=== PATIENT | female | born 1940 | race Caucasian/White ===

== ENCOUNTER 2016-02-20 10:32 | Observation (INO) | payer OTHER ==
--- NOTE | 2016-02-20 10:55 | PDOC ---
History of Present Illness <Clau Foley - Last Filed: 02/20/16 15:37> - General History Source: Patient Exam Limitations: No Limitations - History of Present Illness Initial Comments: 02/20/16 11:22 The patient is a 76 year old female, with a significant past medical history of HTN s/p cardiac stents (x2), HLD, diabetes, ESRD, on dialysis (, , Sa), who presents to the emergency department with chest pain since last night. She describes her chest pain as ranging from mild to moderate, without radiation or modifying factors. The patient denies shortness of breath, headache and dizziness. Denies fever, chills, nausea, vomit, diarrhea and constipation. Denies dysuria, frequency, urgency and hematuria. Allergies: Morphin, Reglan, IV dye, Cephalosporins, lovastatin Past surgical history: 2 cardiac stents, angioplasty BLE, Lower back surgery, RBKA,R HIP SURGERY-METAL RODS AND PINS PLACED Social history: No alcohol, tobacco or drug use reported <Ean Campos - Last Filed: 02/20/16 15:51> - General Chief Complaint: Chest Pain Stated Complaint: CHEST PAIN Time Seen by Provider: 02/20/16 10:54 Past History - Past Medical History Anemia: No Asthma: No Cancer: No Cardiac Disorders: Yes (2 stents) CVA: No COPD: No CHF: No Dementia: No Diabetes: Yes Dialysis: Yes GI Disorders: No Disorders: Yes (ESRD, dialysis e,,sat) HTN: Yes Hypercholesterolemia: Yes Liver Disease: No Suicide Attempt (Hx): No Seizures: No Thyroid Disease: No - Surgical History Abdominal Surgery: No Appendectomy: No Cardiac Surgery: Yes (2 stents, angioplasty BLE) Cholecystectomy: No Lung Surgery: No Neurologic Surgery: Yes (lower back sx) Orthopedic Surgery: Yes (RBKA,R HIP SURGERY-METAL RODS AND PINS PLACED) - Immunization History Immunization Up to Date: Yes - Psycho/Social/Smoking Cessation Hx Anxiety: No Suicidal Ideation: No Smoking History: Never smoked Have you smoked in the past 12 months: No Cigars Per Day: 0 Hx Alcohol Use: No Drug/Substance Use Hx: No Substance Use Type: None Hx Substance Use Treatment: No <Clau Foley - Last Filed: 02/20/16 15:37> <Ean Campos - Last Filed: 02/20/16 15:51> - Past Medical History Allergies/Adverse Reactions: Allergies Allergy/AdvReac Type Severity Reaction Status Date / Time lovastatin [From Mevacor] Allergy Severe Rash Verified 02/20/16 10:57 Cephalosporins Allergy Verified 02/20/16 10:57 Iodinated Contrast Media - Allergy Verified 02/20/16 10:57 Oral and [Iodinated Contrast Media - IV Dye] metoclopramide HCl Allergy Verified 02/20/16 10:57 [From Reglan] morphine Allergy Verified 02/20/16 10:57 Home Medications: Ambulatory Orders Acetaminophen [Tylenol] 325 mg PO PRN 02/20/16 Atorvastatin Calcium 20 mg PO HS 02/20/16 Bacitracin - [Bacitracin Topical Ointment -] 1 applic TP BID 02/20/16 Bismuth Subsalicylate [Kaopectate] 30 ml PO PRN 02/20/16 Calcium Carbonate [Tums] 750 mg PO PRN 02/20/16 Clonidine HCl [Catapres -] 0.1 mg PO PRN 02/20/16 Clopidogrel Bisulfate [Plavix -] 75 mg PO DAILY 02/20/16 Diphenhydramine HCl [Benadryl -] 25 mg PO HS 02/20/16 Diphenhydramine in 0.9 % NaCl [Diphenhydramine 25 mg/50 ml-Ns] 25 mg IV PRN 04/06 Docusate Sodium [Colace -] 100 mg PO TID 02/20/16 Escitalopram Oxalate [Lexapro -] 10 mg PO DAILY 02/20/16 Fluticasone Propionate [Allergy Relief] 15.8 ml NS DAILY 02/20/16 Furosemide [Lasix -] 80 mg PO DAILY 02/20/16 Gabapentin [Neurontin -] 300 mg PO HS 02/20/16 Hydralazine HCl 100 mg PO TID 02/20/16 Insulin Glargine,Hum.rec.anlog [Lantus (nf)] 0 units SQ HS 02/20/16 Mirtazapine [Remeron -] 15 mg PO HS 02/20/16 Polyethylene Glycol 3350 [Miralax (For Daily Use) -] 17 gm PO BID 02/20/16 Sevelamer Carbonate [Renvela] 800 mg PO TID 02/20/16 Silver Sulfadiazine [Thermazene] 20 gm TP BID 02/20/16 Tramadol HCl [Ultram] 50 mg PO Q6H 02/20/16 Vit B Cmplx 3/FA/Vit C/Biotin [[facility] Rx Tablet] 1 each PO DAILY 02/20/16 Warfarin Sodium [Coumadin] 2.5 mg PO HS 02/20/16 Review of Systems - Review of Systems Able to Perform ROS?: Yes Comments:: 02/20/16 11:22 GENERAL/CONSTITUTIONAL: No fever or chills. No weakness. HEAD, EYES, EARS, NOSE AND THROAT: No change in vision. No ear pain or discharge. No sore throat. CARDIOVASCULAR: +Chest pain. No shortness of breath RESPIRATORY: No cough, wheezing, or hemoptysis. GASTROINTESTINAL: No nausea, vomiting, diarrhea or constipation. GENITOURINARY: No dysuria, frequency, or change in urination. MUSCULOSKELETAL: No joint or muscle swelling or pain. No neck or back pain. SKIN: No rash NEUROLOGIC: No headache, vertigo, loss of consciousness, or change in strength/ sensation. ENDOCRINE: No increased thirst. No abnormal weight change HEMATOLOGIC/LYMPHATIC: No anemia, easy bleeding, or history of blood clots. ALLERGIC/IMMUNOLOGIC: No hives or skin allergy. <Ean Campos - Last Filed: 02/20/16 15:51> *Physical Exam - Physical Exam Comments: GENERAL: Awake, alert, and fully oriented, in no acute distress HEAD: No signs of trauma EYES: PERRLA, EOMI, sclera anicteric, conjunctiva clear ENT: L auricle with area of swelling to the cymba and the triangular fossa. With leakage of purulent discharge in the triangular fossa. +Edema to the same. Hearing grossly normal, nares patent, oropharynx clear without exudates. Dry mucosa NECK: Normal ROM, supple, no lymphadenopathy, JVD, or masses LUNGS: Breath sounds equal, clear to auscultation bilaterally. No wheezes, and no crackles HEART: Regular rate and rhythm, normal S1 and S2, no murmurs, rubs or gallops ABDOMEN: Soft, nontender, normoactive bowel sounds. No guarding, no rebound. No masses EXTREMITIES: Normal range of motion, no edema. No clubbing or cyanosis. No cords, erythema, or tenderness NEUROLOGICAL: Cranial nerves II through XII grossly intact. Normal speech, normal gait SKIN: Warm, Dry, normal turgor, no rashes or lesions noted. <Clau Foley - Last Filed: 02/20/16 15:37> - Vital Signs Last Vital Signs Temp Pulse Resp BP Pulse Ox 97.5 F L 82 18 159/62 98 02/20/16 10:35 02/20/16 10:35 02/20/16 10:35 02/20/16 10:35 02/20/16 10:35 <Ean Campos - Last Filed: 02/20/16 15:51> ED Treatment Course - LABORATORY CBC & Chemistry Diagram: 02/20/16 11:38 02/20/16 11:38 <Clau Foley - Last Filed: 02/20/16 15:37> - LABORATORY CBC & Chemistry Diagram: 02/20/16 11:38 02/20/16 11:38 - RADIOLOGY Radiograph Interpretation: 02/20/16 12:32 Chest X-Ray Reviewed by: Juan Carlos Silver Impression: Weak inspiration, large heart, unfolded aorta and congestive changes. A right upper lobe infiltrate cannot be totally excluded. Comparison is made of 08/15/2015. <Ean Campos - Last Filed: 02/20/16 15:51> Medical Decision Making - Medical Decision Making L ear discharge was cultured and patient was started on vanco for suspected MRSA. I expressed the purulent discharge from the edematous pocket in the cymba , as the lesion was already open in the triangular fossa. Able to express a moderate amount of fluid. I did not incise based on location, just expressed what would come out, as there was an opening already. Will defer further management to ENT. For the jaw pain, I discussed with Dr. Billings, who will admit, and Dr. Xavier, who will evaluate. Dr. Aceves to dialyze, as she missed dialysis today due to jaw pain- she was concerned it was her CAD. <Clau Foley - Last Filed: 02/20/16 15:37> - Medical Decision Making 02/20/16 13:35 Dr. Lew Billings was consulted regarding the patient at 1:27pm [phone] Dr. Farhad Aceves was consulted regarding the patient at 1:31pm [phone] <Ean Campos - Last Filed: 02/20/16 15:51> *DC/Admit/Observation/Transfer - Discharge Dispostion Admit: Yes <Clau Foley - Last Filed: 02/20/16 15:37> - Attestations Scribe Attestion: 02/20/16 11:23 Documentation prepared by Ean Campos, acting as medical scheduler for Clau Foley MD. <Ean Campos - Last Filed: 02/20/16 15:51> Diagnosis at time of Disposition: Chest pain at rest, ESRD (end stage renal disease) Abscess of external ear Qualifiers: Laterality: left Qualified Code(s): H60.02 - Abscess of left external ear - Discharge Dispostion Condition at time of disposition: Stable - Referrals
[2016-02-20 11:02] VITALS: BMI 34.0
[2016-02-20] MEDS ORDERED: VANCOMYCIN 1,000 MG in DEXTROSE 5%-WATER - 250 ML IVPB ONE (11:40)
[2016-02-20 11:58] LABS: BASOPHIL 0.7 % (0-2.0); EOSINOPHIL 6.1 % (0-4.5); MCH 33.1 pg (25.7-33.7); MCHC 32.4 g/dl (32.0-36.0); MEAN CELL VOLUME 102.1 fl (80-96); MEAN PLT VOLUME 8.4 fl (7.5-11.1); PLATELET COUNT 250 K/MM3 (134-434); RDW 14.7 % (11.6-15.6); WHITE BLOOD COUNT 7.3 K/mm3 (4.0-10.0)
[2016-02-20] MEDS ORDERED: VANCOMYCIN 1 GRAM (PRE-DOCKED) 250 ML IVPB ONE (12:02)
[2016-02-20 12:20] LABS: INR 3.7 (0.82-1.09); PROTHROMBIN TIME (PATIENT) 41.8 SEC (9.98-11.88)
[2016-02-20 12:38] LABS: ALBUMIN 3.2 g/dl (3.4-5.0); BILIRUBIN,TOTAL 0.3 mg/dL (0.2-1.0); CALCIUM 7.8 mg/dL (8.5-10.1); TOT PROT 6.4 g/dl (6.4-8.2)
[2016-02-20 12:40] LABS: TROPONIN I 0.02 ng/ml (0.00-0.05)
--- NOTE | 2016-02-20 14:17 | CONSULT ---
Consult Consult Specialty:: Cardiology Referred by:: Dr. Billings Reason for Consultation:: Jaw pain, angina - History of Present Illness Chief Complaint: Jaw pain History of Present Illness: 76 year old woman with a history of HTN, DM, HLD, CAD s/p CABG with PALOMO to LAD , s/p stents last 12/16/14 for UA KASH to RPDA, patent PALOMO to LAD residual 80-90 % AV continuation artery, 80-90% OM1, 50-60% LPL1, ESRD on HD, PAD s/p b/l fem- pop bypass s/p RLE amputation on coumadin for PAD, chronic diastolic CHF, sent to ER from HD with c/o jaw pain. Pt. seen and examined in the ER in nad, resting comfortably currently. Pt. states that she had episodes of jaw pain last night for which she took NTG with resolution. states that today she had a recurrent episode of jaw pain and thus was sent to the ER. she denies any chest pain. no sob. no palpitations, lightheadedness, dizziness, syncope, or near syncope. - History Source History Provided By: Patient, Medical Record Limitations to Obtaining History: No Limitations - Past Medical History [employer]: Yes: Peripheral Neuropathy. No: Seizure Cardio/Vascular: Yes: CAD, HTN, Hyperlipdemia, Murmur, Other (pad) Gastrointestinal: Yes: GERD, Other (obesity). 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), AV Fistula/Graft (Left), Bypass (left lower ext), Stent - Alcohol/Substance Use Hx Alcohol Use: No History of Substance Use: reports: None - Smoking History Smoking history: Never smoked Have you smoked in the past 12 months: No - Social History Usual Living Arrangement: Assisted Living ADL: Support Services History of Recent Travel: No Home Medications - Allergies Allergies/Adverse Reactions: Allergies Allergy/AdvReac Type Severity Reaction Status Date / Time lovastatin [From Mevacor] Allergy Severe Rash Verified 02/20/16 10:57 Cephalosporins Allergy Verified 02/20/16 10:57 Iodinated Contrast Media - Allergy Verified 02/20/16 10:57 Oral and [Iodinated Contrast Media - IV Dye] metoclopramide HCl Allergy Verified 02/20/16 10:57 [From Reglan] morphine Allergy Verified 02/20/16 10:57 - Home Medications Home Medications: Ambulatory Orders Acetaminophen [Tylenol] 325 mg PO PRN 02/20/16 Atorvastatin Calcium 20 mg PO HS 02/20/16 Bacitracin - [Bacitracin Topical Ointment -] 1 applic TP BID 02/20/16 Bismuth Subsalicylate [Kaopectate] 30 ml PO PRN 02/20/16 Calcium Carbonate [Tums] 750 mg PO PRN 02/20/16 Clonidine HCl [Catapres -] 0.1 mg PO PRN 02/20/16 Clopidogrel Bisulfate [Plavix -] 75 mg PO DAILY 02/20/16 Diphenhydramine HCl [Benadryl -] 25 mg PO HS 02/20/16 Diphenhydramine in 0.9 % NaCl [Diphenhydramine 25 mg/50 ml-Ns] 25 mg IV PRN 04/06 Docusate Sodium [Colace -] 100 mg PO TID 02/20/16 Escitalopram Oxalate [Lexapro -] 10 mg PO DAILY 02/20/16 Fluticasone Propionate [Allergy Relief] 15.8 ml NS DAILY 02/20/16 Furosemide [Lasix -] 80 mg PO DAILY 02/20/16 Gabapentin [Neurontin -] 300 mg PO HS 02/20/16 Hydralazine HCl 100 mg PO TID 02/20/16 Insulin Glargine,Hum.rec.anlog [Lantus (nf)] 0 units SQ HS 02/20/16 Mirtazapine [Remeron -] 15 mg PO HS 02/20/16 Polyethylene Glycol 3350 [Miralax (For Daily Use) -] 17 gm PO BID 02/20/16 Sevelamer Carbonate [Renvela] 800 mg PO TID 02/20/16 Silver Sulfadiazine [Thermazene] 20 gm TP BID 02/20/16 Tramadol HCl [Ultram] 50 mg PO Q6H 02/20/16 Vit B Cmplx 3/FA/Vit C/Biotin [[place] Rx Tablet] 1 each PO DAILY 02/20/16 Warfarin Sodium [Coumadin] 2.5 mg PO HS 02/20/16 Family Disease History - Family Disease History Family History: Denies Review of Systems - Review of Systems Constitutional: denies: No Symptoms, Chills, Diaphoresis, Fever, Lethargy, Loss of Appetite, Malaise, Night Sweats, Unintentional Wgt. Loss, Weakness, Other Eyes: denies: No Symptoms, Blind Spots, Blurred Vision, Double Vision, Eye Pain , Floaters, Photophobia, Recent Change in Vision, Other HENT: reports: Other (jaw pain). denies: No Symptoms, Difficult Swallowing, Ear Discharge, Ear Pain, Epistaxis, Gingival Bleeding, Hearing Loss, Mouth Swelling, Nasal Congestion, Ocular Prosthesis, Throat Pain, Toothache, Ringing in Ears Neck: denies: No Symptoms, Decreased ROM, Lumps, Pain on Movement, Stiffness, Swollen Glands, Tenderness, Other Cardiovascular: reports: Other (jaw pain). denies: No Symptoms, Chest Pain, Edema, Palpitations, Shortness of Breath Respiratory: denies: No Symptoms, Cough, Exercise Intolerance, Hemoptysis, Orthopnea, PND, Snoring, SOB, SOB on Exertion, Wheezing, Other Gastrointestinal: denies: No Symptoms, Abdominal Pain, Bloating, Constipation, Diarrhea, Dysphagia, Indigestion, Melena, Nausea, Rectal Bleeding, Vomiting, Vomiting Blood, Other Genitourinary: denies: No Symptoms, Burning, Discharge, Dysuria, Flank Pain, Frequency, Hematuria, Incontinence, Lesions, Menses, Pain, Testicular Mass, Testicular Pain, Testicular Swelling, Urgency, Vaginal Bleeding, Other Breasts: denies: No Symptoms Reported, See HPI, Breast Implants, Discharge from Nipple, Lumps, Pain, Skin Changes, Other Musculoskeletal: denies: No Symptoms, Back Pain, Crepitus, Decreased ROM, Extremity Pain, Joint Pain, Joint Swelling, Muscle Pain, Muscle Cramps, Muscle Weakness, Other Integumentary: denies: No Symptoms, Blister, Bruising, Change in Color, Eczema, Erythema, Incision, Lesions, Lump, Pallor, Pruritis, Rash, Wound, Other Neurological: denies: No Symptoms, Change in LOC, Change in Speech, Confusion, Dizziness, Headache, Incoordination, Numbness, Parasthesia, Pre-Existing Deficit , Seizure, Syncope, Tremors, Unsteady Gait, Weakness, Other Endocrine: denies: No Symptoms, Excessive Sweating, Flushing, Increased Hunger, Increased Thirst, Intolerance to Cold, Intolerance to Heat, Unexplained Weight Gain, Unexplained Weight Loss, Other Hematology/Lymphatic: denies: No Symptoms, Easily Bruised, Excessive Bleeding, Swollen Glands, Other Psychiatric: denies: No Symptoms, Altered Sleep Pattern, Anxiety, Depression, Hallucinations, Panic, Paranoia, Suicidal, Other - Risk Factors Known Risk Factors: Yes: Age, Diabetes Mellitus, Hypercholesterolemia, Hypertension, Prior ME /Emb Stroke Vital Signs: Vital Signs Temperature 97.5 F L 02/20/16 10:35 Pulse Rate 82 02/20/16 10:35 Respiratory Rate 18 02/20/16 10:35 Blood Pressure 159/62 02/20/16 10:35 O2 Sat by Pulse Oximetry (%) 98 02/20/16 10:35 Constitutional: Yes: No Distress, Calm, Obese Eyes: Yes: WNL, Conjunctiva Clear, EOM Intact, PERRL HENT: Yes: WNL, Atraumatic, Normocephalic Neck: Yes: WNL, Supple, Trachea Midline Respiratory: Yes: Regular, Rales. No: Rhonchi, Wheezes Gastrointestinal: Yes: WNL, Normal Bowel Sounds, Soft. No: Distention, Tenderness Renal/: Yes: WNL Cardiovascular: Yes: Regular Rate and Rhythm. No: Bradycardia, Tachycardia, Pulse Irregular, Gallop, Rub, Varicosities JVD: No Carotid Bruit: No PMI: Non-Displaced Heart Sounds: Yes: S1. No: Split S2, S3, S4, Clicks, Gallop, Rub, Bruit Murmur: No: Systolic Murmur, Diastolic Murmur Musculoskeletal: Yes: WNL Extremities: Yes: Amputation Edema: No Peripheral Pulses WNL: No Neurological: Yes: Alert, Oriented Psychiatric: Yes: Alert, Oriented - Other Data Labs, Other Data: CBC, BMP 02/20/16 11:38 02/20/16 11:38 INR, PTT INR 3.70 (0.82-1.09) H D 02/20/16 11:38 Troponin, BNP 02/20/16 11:38 Troponin I 0.02 Troponin, BNP 02/20/16 11:38 Troponin I 0.02 ekg-nsr 81bpm, LVH with repolarization abnl, poor R progression, no sig ST abnl Prior Cardiac Procedures: CABG, PTCA with Stent Imaging - Results Chest X-ray: Report Reviewed, Image Reviewed EKG: Report Reviewed, Image Reviewed Other: Report Reviewed, Image Reviewed Problem List - Problems (1) ESRD (end stage renal disease) Code(s): N18.6 - END STAGE RENAL DISEASE (2) CAD (coronary artery disease) Code(s): I25.10 - ATHSCL HEART DISEASE OF [place] CORONARY ARTERY W/O ANG PCTRS Qualifiers: Coronary Disease-Associated Artery/Lesion type: [place] coronary artery [place] vs. transplanted heart: [place] heart Associated angina: with unspecified angina pectoris (3) Diabetes Code(s): E11.9 - TYPE 2 DIABETES MELLITUS WITHOUT COMPLICATIONS Qualifiers: Diabetes mellitus type: type 2 Diabetes mellitus complication detail: with chronic kidney disease Qualified Code(s): E11.22 - Type 2 diabetes mellitus with diabetic chronic kidney disease; N18.1 - Chronic kidney disease, stage 1; Z79.4 - penitentiary (current) use of insulin (4) HTN (hypertension) Code(s): I10 - ESSENTIAL (PRIMARY) HYPERTENSION (5) Peripheral vascular disease Code(s): I73.9 - PERIPHERAL VASCULAR DISEASE, UNSPECIFIED (6) Jaw pain Code(s): R68.84 - JAW PAIN Assessment/Plan 76 year old woman with a history of HTN, DM, HLD, CAD s/p CABG with PALOMO to LAD , s/p stents last 12/16/14 for UA KASH to RPDA, patent PALOMO to LAD residual 80-90 % AV continuation artery, 80-90% OM1, 50-60% LPL1, ESRD on HD, PAD s/p b/l fem- pop bypass s/p RLE amputation on coumadin for PAD, chronic diastolic CHF, sent to ER from HD with c/o jaw pain. Pt. seen and examined in the ER in nad, resting comfortably currently. Pt. states that she had episodes of jaw pain last night for which she took NTG with resolution. states that today she had a recurrent episode of jaw pain and thus was sent to the ER. Jaw pain-chronic intermittent episodes, h/o CAD as above -1st set of cardiac enzymes wnl -ekg showed no ischemia -check serial cardiac enzymes and ekgs -telemetry monitoring -cont home Plavix (not on ASA as she is on coumadin as well for PAD) -cont lipitor -not on bblocker due to history of bradycardia Chronic diastolic CHF -currently overall euvolemic -volume removal with HD as needed HTN-adequately controlled -cont home medical regimen
[2016-02-20] MEDS ORDERED: traMADol HCL 50 MG TABLET PO PRN (14:30)
[2016-02-20] MEDS ORDERED: ACETAMINOPHEN 325 MG TABLET (FP) PO PRN (14:30)
[2016-02-20] MEDS ORDERED: CALCIUM CARBONATE 750 MG PO SCH (14:30)
--- NOTE | 2016-02-20 14:34 | HP ---
Admitting History and Physical - Admission Chief Complaint: 76 y.o F developed a jaw pain and the feli in the chest and between the shoulders, c/w previous episodes of angina at the dialysis center and was sent to the ER [facility]. History of Present Illness: ESRD, HD TIW. Right hydronephrosis, hydroureter. Recurrent UTI's, ER admission after fall-CT.X-rays neg DM 2. ASHD. S/P stents. Recent PCI-RCA KASH-now on ASA, Plavix-and on Coumadin as per vascular surgeon.. Bradicardia-intolerant of BAB-pt always develops severe bradicardia, hypotension , and MS changes. Hyperlipidemia. Polyneuropathy. PVD. B/l Fem-pop. 01/2016 Angio-no procedure done. HTN Labile. Depression Right foot gangrene-s/p Right BKA- History Source: Patient, Medical Record Limitations to Obtaining History: No Limitations - Past Medical History [employer]ENIOR VISUAL DESIGNER: Yes: Peripheral Neuropathy. No: Seizure Cardiovascular: Yes: CAD, HTN, Hyperlipdemia, Murmur, Other (pad) Gastrointestinal: Yes: GERD, Other (obesity). 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), AV Fistula/Graft (Left), Bypass (left lower ext), Stent - Smoking History Smoking history: Never smoked Have you smoked in the past 12 months: No - Alcohol/Substance Use Hx Alcohol Use: No History of Substance Use: reports: None - Social History ADL: Support Services History of Recent Travel: No Home Medications - Allergies Allergies/Adverse Reactions: Allergies Allergy/AdvReac Type Severity Reaction Status Date / Time lovastatin [From Mevacor] Allergy Severe Rash Verified 02/20/16 10:57 Cephalosporins Allergy Verified 02/20/16 10:57 Iodinated Contrast Media - Allergy Verified 02/20/16 10:57 Oral and [Iodinated Contrast Media - IV Dye] metoclopramide HCl Allergy Verified 02/20/16 10:57 [From Reglan] morphine Allergy Verified 02/20/16 10:57 - Home Medications Home Medications: Ambulatory Orders Acetaminophen [Tylenol] 325 mg PO PRN 02/20/16 Atorvastatin Calcium 20 mg PO HS 02/20/16 Bacitracin - [Bacitracin Topical Ointment -] 1 applic TP BID 02/20/16 Bismuth Subsalicylate [Kaopectate] 30 ml PO PRN 02/20/16 Calcium Carbonate [Tums] 750 mg PO PRN 02/20/16 Clonidine HCl [Catapres -] 0.1 mg PO PRN 02/20/16 Clopidogrel Bisulfate [Plavix -] 75 mg PO DAILY 02/20/16 Diphenhydramine HCl [Benadryl -] 25 mg PO HS 02/20/16 Diphenhydramine in 0.9 % NaCl [Diphenhydramine 25 mg/50 ml-Ns] 25 mg IV PRN 04/06 Docusate Sodium [Colace -] 100 mg PO TID 02/20/16 Escitalopram Oxalate [Lexapro -] 10 mg PO DAILY 02/20/16 Fluticasone Propionate [Allergy Relief] 15.8 ml NS DAILY 02/20/16 Furosemide [Lasix -] 80 mg PO DAILY 02/20/16 Gabapentin [Neurontin -] 300 mg PO HS 02/20/16 Hydralazine HCl 100 mg PO TID 02/20/16 Insulin Glargine,Hum.rec.anlog [Lantus (nf)] 0 units SQ HS 02/20/16 Mirtazapine [Remeron -] 15 mg PO HS 02/20/16 Polyethylene Glycol 3350 [Miralax (For Daily Use) -] 17 gm PO BID 02/20/16 Sevelamer Carbonate [Renvela] 800 mg PO TID 02/20/16 Silver Sulfadiazine [Thermazene] 20 gm TP BID 02/20/16 Tramadol HCl [Ultram] 50 mg PO Q6H 02/20/16 Vit B Cmplx 3/FA/Vit C/Biotin [[place] Rx Tablet] 1 each PO DAILY 02/20/16 Warfarin Sodium [Coumadin] 2.5 mg PO HS 02/20/16 Family Disease History - Family Disease History Family History: Unremarkable Review of Systems - Review of Systems Constitutional: denies: Chills, Diaphoresis, Lethargy Eyes: denies: Blind Spots, Double Vision HENT: reports: Ear Discharge (left ear). denies: Difficult Swallowing, Nasal Congestion Neck: denies: Decreased ROM, Lumps Cardiovascular: reports: Chest Pain. denies: Palpitations, Shortness of Breath Respiratory: reports: Exercise Intolerance, SOB, SOB on Exertion. denies: Cough Gastrointestinal: denies: Abdominal Pain, Bloating, Nausea, Vomiting Genitourinary: denies: Burning, Discharge, Dysuria, Vaginal Bleeding Breasts: reports: No Symptoms Reported Integumentary: reports: Wound (left auriculum) Neurological: denies: Change in LOC, Change in Speech, Confusion Endocrine: denies: Increased Thirst, Unexplained Weight Loss Hematology/Lymphatic: denies: Excessive Bleeding, Swollen Glands Psychiatric: reports: No Symptoms Physical Examination Vital Signs: Vital Signs Temperature 97.5 F L 02/20/16 10:35 Pulse Rate 82 02/20/16 10:35 Respiratory Rate 18 02/20/16 10:35 Blood Pressure 159/62 02/20/16 10:35 O2 Sat by Pulse Oximetry (%) 98 02/20/16 10:35 Constitutional: Yes: Anxious, Mild Distress Eyes: Yes: Conjunctiva Clear, EOM Intact HENT: Yes: Atraumatic, Normocephalic, Other (left helix abscess? draining) Neck: Yes: Supple, Trachea Midline Cardiovascular: Yes: Regular Rate and Rhythm, S1, S2. No: Tachycardia, JVD Respiratory: Yes: Regular, CTA Bilaterally. No: Accessory Muscle Use, Rales, Rhonchi Gastrointestinal: Yes: Normal Bowel Sounds, Soft, Abdomen, Obese. No: Palpable Mass, Tenderness ...Rectal Exam: Yes: Deferred Renal/: Yes: Oliguria, Other (HD TIW). No: CVA Tenderness - Left, CVA Tenderness - Right Extremities: Yes: Amputation (Right BKA) Edema: No Peripheral Pulses WNL: No Integumentary: Yes: Other (Left heel) Wound/Incision: Yes: Other (left ear) Neurological: Yes: Alert, Oriented, Numbness, Weakness ...Motor Strength: WNL Psychiatric: Yes: WNL Labs: CBC, BMP 02/20/16 11:38 02/20/16 11:38 Laboratory Results - last 24 hr 0102/20/16 02/20/16 11:38 11:38 11:38 WBC 7.3 D RBC 3.28 L Hgb 10.9 Hct 33.5 MCV 102.1 H MCHC 32.4 RDW 14.7 Plt Count 250 D MPV 8.4 Neutrophils % 75.0 Lymphocytes % 11.8 D Monocytes % 6.4 Eosinophils % 6.1 H Basophils % 0.7 INR 3.70 H D Sodium 138 Potassium 5.6 H Chloride 105 Carbon Dioxide 19 L Anion Gap 14 BUN 63 H D Creatinine 7.0 H D Creat Clearance w eGFR 5.71 Random Glucose 252 H D Calcium 7.8 L Total Bilirubin 0.3 D AST 12 L D ALT 20 Alkaline Phosphatase 144 H D Creatine Kinase 96 Troponin I 0.02 Total Protein 6.4 Albumin 3.2 L Problem List - Problems (1) Chest pain at rest Assessment/Plan: Telemetry, PRADEEP Cardiology consult Continue meds. Code(s): R07.9 - CHEST PAIN, UNSPECIFIED (2) ESRD (end stage renal disease) Assessment/Plan: Nephrology consult. HD at [facility]/ Code(s): N18.6 - END STAGE RENAL DISEASE (3) Abscess, earlobe Assessment/Plan: Possibly MRSA Vanco give. ENT, ID cosult Abscess cx -p Code(s): H60.00 - ABSCESS OF EXTERNAL EAR, UNSPECIFIED EAR Qualifiers: Laterality: left Qualified Code(s): H60.02 - Abscess of left external ear (4) Hyperkalemia, diminished renal excretion Assessment/Plan: Pt is planned for HD today. Code(s): E87.5 - HYPERKALEMIA
[2016-02-20 16:19] LABS: INR 3.85 (0.82-1.09); PROTHROMBIN TIME (PATIENT) 43.5 SEC (9.98-11.88)
[2016-02-20 16:36] LABS: TROPONIN I 0.02 ng/ml (0.00-0.05)
[2016-02-20] MEDS: INSULIN SLIDING SCALE (NOVOLOG) 1 VIAL SQ SCH ×2 (19:05→23:57)
[2016-02-20] MEDS ORDERED: INSULIN DETEMIR 100 UNITS/ML MDV SQ SCH (22:00)
[2016-02-20] MEDS ORDERED: POLYETHYLENE GLYCOL 3350 119 GM BTL PO SCH (22:00)
[2016-02-20] MEDS ORDERED: BACITRACIN 30 GM TUBE TOPICAL OINTMENT TP SCH (22:00)
[2016-02-20] MEDS ORDERED: GABAPENTIN 300 MG CAPSULE (FP) PO SCH (22:00)
[2016-02-20] MEDS ORDERED: SILVER SULFADIAZINE 1% TOP CREAM 50 GM JAR TP SCH (22:00)
[2016-02-20] MEDS ORDERED: ATORVASTATIN CA 20 MG TABLET (FP) PO SCH (22:00)
[2016-02-20] MEDS ORDERED: WARFARIN NA 2.5 MG TABLET (FP) PO SCH (22:00)
[2016-02-20] MEDS ORDERED: diphenhydrAMINE HCL 25 MG CAPSULE (FP) PO SCH (22:00)
[2016-02-20] MEDS: SEVELAMER CARBONATE 800 MG TAB (FP) PO SCH (22:45)
[2016-02-20] MEDS ORDERED: INSULIN REGULAR HUMAN 100 UNITS/ML *VIAL ONE (23:40)
[2016-02-20] MEDS: hydrALAZINE HCL 50 MG TABLET (FP) PO SCH (23:58)
[2016-02-20] MEDS: DOCUSATE SODIUM 100 MG CAPSULE (FP) PO SCH (23:59)
[2016-02-21] MEDS ORDERED: hydrALAZINE HCL 25 MG TABLET (FP) ONE (06:32)
[2016-02-21] MEDS ORDERED: DOCUSATE SODIUM 100 MG CAPSULE (FP) PO ONE (06:33)
[2016-02-21] MEDS: DOCUSATE SODIUM 100 MG CAPSULE (FP) PO SCH (06:44)
[2016-02-21] MEDS: hydrALAZINE HCL 50 MG TABLET (FP) PO SCH (06:44)
[2016-02-21] MEDS: INSULIN SLIDING SCALE (NOVOLOG) 1 VIAL SQ SCH ×2 (07:31→11:38)
--- NOTE | 2016-02-21 08:46 | PN ---
Progress Note, Physician History of Present Illness: seen and examined today in nad. no overnight events. no further chest pain or jaw pain overnight. - Current Medication List Current Medications: Active Medications Acetaminophen (Tylenol -) 325 mg PO Q8H PRN Atorvastatin Calcium (Lipitor -) 20 mg PO HS [facility] Last Admin: 02/20/16 23:59 Dose: 20 mg Bacitracin (Bacitracin -) 1 applic TP BID [facility] Last Admin: 02/20/16 23:58 Dose: Not Given Clopidogrel Bisulfate (Plavix -) 75 mg PO DAILY [facility] Diphenhydramine HCl (Benadryl -) 25 mg PO HS [facility] Last Admin: 02/20/16 23:58 Dose: 25 mg Docusate Sodium (Colace -) 100 mg PO TID [facility] Last Admin: 02/21/16 06:44 Dose: 100 mg Escitalopram Oxalate (Lexapro -) 10 mg PO DAILY [facility] Fluticasone Propionate (Flonase -) 1 spray NS DAILY [facility] Furosemide (Lasix -) 80 mg PO DAILY [facility] Gabapentin (Neurontin -) 300 mg PO [facility] Last Admin: 02/21/16 00:00 Dose: 300 mg Hydralazine HCl (Apresoline -) 100 mg PO TID [facility] Last Admin: 02/21/16 06:44 Dose: 100 mg Insulin Aspart (Novolog Vial Sliding Scale -) 1 vial SQ ACHS [facility] PRN Reason: Protocol Last Admin: 02/21/16 07:31 Dose: Not Given Insulin Detemir (Levemir Vial) 10 units SQ [facility] Last Admin: 02/20/16 23:59 Dose: 10 units Polyethylene Glycol (Miralax (For Daily Use) -) 17 gm PO BID [facility] Last Admin: 02/20/16 23:59 Dose: 17 gm Sevelamer Carbonate (Renvela -) 800 mg PO TIDCM [facility] Last Admin: 02/20/16 22:45 Dose: Not Given Silver Sulfadiazine (Silvadene -) 1 applic TP BID [facility] Last Admin: 02/21/16 00:00 Dose: Not Given Tramadol HCl (Ultram -) 50 mg PO Q6H PRN - Objective Vital Signs: Vital Signs Temperature 98.8 F 02/20/16 17:05 Pulse Rate 71 02/21/16 07:10 Respiratory Rate 20 02/21/16 07:10 Blood Pressure 169/75 02/21/16 07:10 O2 Sat by Pulse Oximetry (%) 96 02/21/16 07:10 Constitutional: Yes: No Distress, Calm, Obese Eyes: Yes: WNL, Conjunctiva Clear, EOM Intact, PERRL HENT: Yes: WNL, Atraumatic, Normocephalic Neck: Yes: WNL, Supple, Trachea Midline Cardiovascular: Yes: Regular Rate and Rhythm, S1, S2. No: Bradycardia, Tachycardia, Pulse Irregular, Bruit, JVD, Gallop, Murmur, Rub, S3, S4, Varicosities Respiratory: Yes: WNL, Regular, CTA Bilaterally. No: Rales, Rhonchi, Wheezes Gastrointestinal: Yes: WNL, Normal Bowel Sounds, Soft. No: Distention, Tenderness Musculoskeletal: Yes: WNL Extremities: Yes: WNL Edema: No Peripheral Pulses WNL: Yes Peripheral Pulses: Left Doralis Pedis: 2+, Right Dorsalis Pedis: 2+ Integumentary: Yes: WNL Neurological: Yes: WNL, Alert, Oriented, Cran Nerves II-XII Intact ...Motor Strength: WNL Psychiatric: Yes: WNL, Alert, Oriented Labs: INR, PTT INR 3.85 (0.82-1.09) H 02/20/16 15:45 - ....Imaging Chest X-ray: Report Reviewed, Image Reviewed EKG: Report Reviewed, Image Reviewed Other: Report Reviewed, Image Reviewed (tele-no events) Problem List - Problems (1) ESRD (end stage renal disease) Code(s): N18.6 - END STAGE RENAL DISEASE (2) CAD (coronary artery disease) Code(s): I25.10 - ATHSCL HEART DISEASE OF [place] CORONARY ARTERY W/O ANG PCTRS Qualifiers: Coronary Disease-Associated Artery/Lesion type: [place] coronary artery [place] vs. transplanted heart: [place] heart Associated angina: with unspecified angina pectoris (3) Diabetes Code(s): E11.9 - TYPE 2 DIABETES MELLITUS WITHOUT COMPLICATIONS Qualifiers: Diabetes mellitus type: type 2 Diabetes mellitus complication detail: with chronic kidney disease (4) HTN (hypertension) Code(s): I10 - ESSENTIAL (PRIMARY) HYPERTENSION (5) Peripheral vascular disease Code(s): I73.9 - PERIPHERAL VASCULAR DISEASE, UNSPECIFIED (6) Jaw pain Code(s): R68.84 - JAW PAIN Assessment/Plan 76 year old woman with a history of HTN, DM, HLD, CAD s/p CABG with PALOMO to LAD , s/p stents last 12/16/14 for UA KASH to RPDA, patent PALOMO to LAD residual 80-90 % AV continuation artery, 80-90% OM1, 50-60% LPL1, ESRD on HD, PAD s/p b/l fem- pop bypass s/p RLE amputation on coumadin for PAD, chronic diastolic CHF, sent to ER from HD with c/o jaw pain. Pt. seen and examined in the ER in nad, resting comfortably currently. Pt. states that she had episodes of jaw pain last night for which she took NTG with resolution. states that today she had a recurrent episode of jaw pain and thus was sent to the ER. Jaw pain-chronic intermittent episodes, h/o CAD as above -cardiac enzymes wnl thus far -ekg showed no ischemia -cont home Plavix (not on ASA as she is on coumadin as well for PAD) -cont lipitor -not on bblocker due to history of bradycardia Chronic diastolic CHF -currently overall euvolemic -volume removal with HD as needed -cont Lasix HTN-above goal -cont current medical regimen for now
[2016-02-21] MEDS: SEVELAMER CARBONATE 800 MG TAB (FP) PO SCH ×2 (09:06→11:42)
--- NOTE | 2016-02-21 09:44 | EKG ---
Test Reason : Blood Pressure : / mmHG Vent. Rate : 081 BPM Atrial Rate : 081 BPM P-R Int : 184 ms QRS Dur : 108 ms QT Int : 410 ms P-R-T Axes : 071 -35 119 degrees QTc Int : 476 ms NORMAL SINUS RHYTHM WITH SINUS ARRHYTHMIA LEFT AXIS DEVIATION LEFT VENTRICULAR HYPERTROPHY WITH REPOLARIZATION ABNORMALITY ABNORMAL ECG WHEN COMPARED WITH ECG OF 15-AUG-2015 13:45, VENT. RATE HAS INCREASED BY [address] Confirmed by NEELIMA JACOBS, MIGUEL ([id number]) on 02/21/2016 9:44:21 AM Referred By: Overread By: MIGUEL ORTEZ MD
[2016-02-21] MEDS ORDERED: PATIENT'S OWN MEDICATION (NON-FORMULARY) (Vit B Cmplx 3/Fa/Vit C/Biotin [Rena-Vite Rx Tabl PO SCH (10:00)
[2016-02-21] MEDS ORDERED: FUROSEMIDE 40 MG TABLET (FP) PO SCH (10:00)
[2016-02-21] MEDS ORDERED: ESCITALOPRAM OXALATE 10 MG TABLET (FP) PO SCH (10:00)
[2016-02-21] MEDS ORDERED: CLOPIDOGREL BISULFATE 75 MG TABLET (FP) PO SCH (10:00)
[2016-02-21] MEDS ORDERED: FLUTICASONE PROP 0.05% 16 GM NASAL SPRAY NS SCH (10:00)
[2016-02-21 10:09] VITALS: BP 159/72; PULSE 66; TEMP 99.2
--- NOTE | 2016-02-21 10:21 | PN ---
Progress Note (short form) - Note Progress Note: ID consult dictated imp/reccd 76 year old female NHR admitted from HD with jaw pain found to have a left ear abscess she reports symptoms related to her ear for last two days- discomfort and swelling no fever or chills abscess was lanced in the ED she was given vancomycin cultures sent ear abscess- s/p drainage continue vancomycin, follow levels f/u cultures jaw pain- r/o CAD, f/u per cardiology esrd/hd antibiotic allergy
--- NOTE | 2016-02-21 11:28 | CONS ---
DATE OF CONSULTATION: DATE OF DICTATION: 02/21/2016 REQUESTING PHYSICIAN: Lew Billings MD HISTORY OF PRESENT ILLNESS: This is a 76-year-old woman who lives at the half-way. She complained of jaw pain when she arrived at the office yesterday and was referred to the emergency room. While in the ER, she was noted to have swelling of her left ear. She was noted to have an abscess, and some serous fluid was drained and cultured. She was given a dose of vancomycin. We were asked to see her for further evaluation. She has no fevers or chills. She has no nausea or vomiting. Her jaw discomfort and chest pain have resolved. PAST MEDICAL HISTORY: Notable for end-stage renal disease. She is on dialysis. Yesterday, she did not receive dialysis and was sent to the ER. She has a history of urinary tract infection in the past, diabetes, coronary artery disease status post stenting. She has a history of bradycardia, hyperlipidemia, neuropathy, peripheral vascular disease, hypertension, and depression. SURGICAL HISTORY: Notable for amputation of the right lower extremity. She has a right BKA due to gangrene. She has a left AV fistula she has had for many years. She has had bilateral femoral popliteal bypasses, as well. FAMILY HISTORY: Noncontributory. SOCIAL HISTORY: She resides at the half-way. There is no history of cigarette or substance use. There is no recent travel. ALLERGIES: She is allergic to LOVASTATIN, CEPHALOSPORINS, IODINE DYE, REGLAN, and MORPHINE. MEDICATIONS: At the half-way include acetaminophen, atorvastatin, bacitracin, Kaopectate, TUMS, clonidine, Plavix, Benadryl, Colace, Lexapro, fluticasone, inhaler, furosemide, gabapentin, hydralazine, insulin, mirtazapine, MiraLAX, Renvela, tramadol, vitamin B, and warfarin. REVIEW OF SYSTEMS: She denies any nausea, vomiting, diarrhea. She notes she has had a wound on her ear for the last days. PHYSICAL EXAMINATION: Vital signs: Current temperature is 99.2 orally, pulse is 66, blood pressure 159/72, respiratory rate 20. General: She is resting comfortably. HEENT: She is normocephalic. Her eyes are anicteric. Her left ear is mildly full, and there is no erythema. She has crusting from where it was drained. The pinna is swollen compared to her right ear. There is no streaking. There is no erythema. Heart: Regular rate and rhythm. Lungs: Clear to auscultation. Her AV fistula site is without any erythema or induration. Abdomen: Soft, nontender. Extremities: Her BKA is without any erythema or drainage. LABORATORIES: Her white count is 7.3, hemoglobin is 10.9, platelets are 250. INR is 3.8. BUN 63, creatinine 7. Cultures of her ear are pending. SUMMARY: This is a 76-year-old woman on dialysis with jaw pain found to have a left ear abscess (it has been drained). Wound continue vancomycin and follow her levels, follow up cultures. Jaw pain. Rule out coronary artery disease. Management per Cardiology. End-stage renal disease. On dialysis. I have ordered blood cultures to be drawn with dialysis today. Would get a vancomycin level as well today and redose if less than 15. LAURA QUEZADA M.D. [id number]
--- NOTE | 2016-02-21 11:31 | CONSULT ---
Consult - text type - Consultation Consultation Note: Renal Consult for ESRD on HD This is a 75 year old Woman with PMhx of ESRD on HD, CAD, PVD s/p BKA, Hx of Osteomylitis, Pylonephritis was sent from her outpatient dialysis unit with chest pain to r/o ACS. EKG and Cardiac Enzymes were negative on presentation. S/ p Dialysis as inpatient yesterday w/o adverse events. Pt also noted to have lesion on her ear and is on Abx as per ID. Pt currently denies any chest pain or pressure. No SOB. No Abd pain, N/V/D. No fever or chills. PMhx: as above Allergies: As listed in medical record Family Hx: NC Social Hx: No T/A/D ROS: as per HPI, all other pertinent ros negative Home Meds: Medication Instructions Recorded Acetaminophen [Tylenol] 325 mg PO PRN 02/20/16 Atorvastatin Calcium 20 mg PO HS 02/20/16 Bacitracin - [Bacitracin Topical 1 applic TP BID 02/20/16 Ointment -] Bismuth Subsalicylate [Kaopectate] 30 ml PO PRN 02/20/16 Calcium Carbonate [Tums] 750 mg PO PRN 02/20/16 Clonidine HCl [Catapres -] 0.1 mg PO PRN 02/20/16 Clopidogrel Bisulfate [Plavix -] 75 mg PO DAILY 02/20/16 Diphenhydramine HCl [Benadryl 25 mg PO HS 02/20/16 Capsule -] Diphenhydramine in 0.9 % NaCl 25 mg IV PRN 02/20/16 [Diphenhydramine 25 mg/50 ml-Ns] Docusate Sodium [Colace -] 100 mg PO TID 02/20/16 Escitalopram Oxalate [Lexapro -] 10 mg PO DAILY 02/20/16 Fluticasone Propionate [Allergy 15.8 ml NS DAILY 02/20/16 Relief] Furosemide [Lasix -] 80 mg PO DAILY 02/20/16 Gabapentin [Neurontin -] 300 mg PO HS 02/20/16 Hydralazine HCl 100 mg PO TID 02/20/16 Insulin Glargine,Hum.rec.anlog 0 units SQ HS 02/20/16 [Lantus (10mL VIAL) -] Mirtazapine [Remeron -] 15 mg PO HS 02/20/16 Polyethylene Glycol 3350 [Miralax 17 gm PO BID 02/20/16 119 gm Btl -] Sevelamer Carbonate [Renvela -] 800 mg PO TID 02/20/16 Silver Sulfadiazine [Thermazene] 20 gm TP BID 02/20/16 Tramadol HCl [Ultram] 50 mg PO Q6H 02/20/16 Vit B Cmplx 3/FA/Vit C/Biotin 1 each PO DAILY 02/20/16 [[facility] Rx Tablet] Vital Signs Temperature 99.2 F 02/21/16 10:00 Pulse Rate 66 02/21/16 10:00 Respiratory Rate 20 02/21/16 10:00 Blood Pressure 159/72 02/21/16 10:00 O2 Sat by Pulse Oximetry (%) 96 02/21/16 07:10 Intake & Output 02/18/16 02/19/16 02/20/16 02/21/16 23:59 23:59 23:59 23:59 Weight 192 lb Gen: NAD, awake and alert HEENT: NC/AT, Dry MM, No JVD CVS: RRR, No M/R Lungs: CTA, no rales Abd: soft NT/ND Ext: Right BKA, No LE edema : No bladder distension Acess: Left forearm AVF + thrill CBC, BMP 02/20/16 11:38 02/20/16 11:38 Current Medications Acetaminophen (Tylenol -) 325 mg PO Q8H PRN Atorvastatin Calcium (Lipitor -) 20 mg PO HS [facility] Last Admin: 02/20/16 23:59 Dose: 20 mg Bacitracin (Bacitracin -) 1 applic TP BID [facility] Last Admin: 02/20/16 23:58 Dose: Not Given Clopidogrel Bisulfate (Plavix -) 75 mg PO DAILY [facility] Last Admin: 02/21/16 10:46 Dose: 75 mg Diphenhydramine HCl (Benadryl -) 25 mg PO HS [facility] Last Admin: 02/20/16 23:58 Dose: 25 mg Docusate Sodium (Colace -) 100 mg PO TID [facility] Last Admin: 02/21/16 06:44 Dose: 100 mg Escitalopram Oxalate (Lexapro -) 10 mg PO DAILY [facility] Last Admin: 02/21/16 10:45 Dose: 10 mg Fluticasone Propionate (Flonase -) 1 spray NS DAILY [facility] Furosemide (Lasix -) 80 mg PO DAILY [facility] Last Admin: 02/21/16 10:44 Dose: 80 mg Gabapentin (Neurontin -) 300 mg PO HS [facility] Last Admin: 02/21/16 00:00 Dose: 300 mg Hydralazine HCl (Apresoline -) 100 mg PO TID [facility] Last Admin: 02/21/16 06:44 Dose: 100 mg Insulin Aspart (Novolog Vial Sliding Scale -) 1 vial SQ ACHS [facility] PRN Reason: Protocol Last Admin: 02/21/16 11:38 Dose: Not Given Insulin Detemir (Levemir Vial) 10 units SQ HS [facility] Last Admin: 02/20/16 23:59 Dose: 10 units Polyethylene Glycol (Miralax (For Daily Use) -) 17 gm PO BID [facility] Last Admin: 02/20/16 23:59 Dose: 17 gm Sevelamer Carbonate (Renvela -) 800 mg PO TIDCM [facility] Last Admin: 02/21/16 11:42 Dose: 800 mg Silver Sulfadiazine (Silvadene -) 1 applic TP BID [facility] Last Admin: 02/21/16 00:00 Dose: Not Given Tramadol HCl (Ultram -) 50 mg PO Q6H PRN A/P 75 year old Woman with PMhx of ESRD on HD, CAD, PVD s/p BKA, Hx of Osteomylitis , Pylonephritis was sent from her outpatient dialysis unit with chest pain to r/ o ACS. #Chest pain Cardiac Enzymes and EKG w/o signs of ischemia Seen by Cardiology ON Tele #Ear abcess/lesion To receive Vancomycin with HD x 2 weeks Seen by ENT #ESRD on HD/Hyperkalemia S/p Hd yesterday, tolerated it well Recorded K was prior to dialysis Next HD tomorrow as outpatient #Renal Osteodystrophy Continue Sevelamer with Meals Thank you Farhad Aceves DO
--- NOTE | 2016-02-21 12:44 | PN ---
Progress Note (short form) - Note Progress Note: Pt seen in the ER today. Denies chest/jaw/scapular pain. Troponin I 0.02-0.02. Elevated INR noted-pt is off Coumadin. Pt had HD. Discussed 2 week course of Vanco during HD lleft ear abscess. ENT consult-p Vital Signs Period Temp Pulse Resp BP Sys/Ureña Pulse Ox Last 24 Hr 98.8 F-99.2 F 60-74 18-20 95-199/51-86 94-96 Awake, alert, NAD Lungs Clear Heart S1S2 regular Abdomen soft , nt Left earlobe-/ small abscess-wound Cx-presumed MRSA. Right BKA Current Active Problems Problem Status Diagnosed Abscess of external ear Acute Abscess, earlobe Acute Chest pain at rest- PRADEEP negative Acute ESRD (end stage renal disease) Acute Hyperkalemia, diminished renal excretion Acute Jaw pain Acute Plan D/C to [facility]. Vanco during HD x2 weeks Problem List - Problems (1) Chest pain at rest Code(s): R07.9 - CHEST PAIN, UNSPECIFIED (2) ESRD (end stage renal disease) Code(s): N18.6 - END STAGE RENAL DISEASE (3) Abscess, earlobe Code(s): H60.00 - ABSCESS OF EXTERNAL EAR, UNSPECIFIED EAR Qualifiers: Laterality: left Qualified Code(s): H60.02 - Abscess of left external ear (4) Hyperkalemia, diminished renal excretion Code(s): E87.5 - HYPERKALEMIA
--- NOTE | 2016-02-21 12:47 | DS ---
Physical Examination Vital Signs: Vital Signs Temperature 99.2 F 02/21/16 10:00 Pulse Rate 66 02/21/16 10:00 Respiratory Rate 20 02/21/16 10:00 Blood Pressure 159/72 02/21/16 10:00 O2 Sat by Pulse Oximetry (%) 96 02/21/16 07:10 Constitutional: Yes: No Distress, Calm, Obese Eyes: Yes: Conjunctiva Clear, EOM Intact HENT: Yes: Other (left earlobe abscess) Neck: Yes: Supple, Trachea Midline Cardiovascular: Yes: Regular Rate and Rhythm. No: JVD Respiratory: Yes: Regular, CTA Bilaterally Gastrointestinal: Yes: Normal Bowel Sounds, Soft, Abdomen, Obese. No: Tenderness ...Rectal Exam: Yes: Deferred Renal/: Yes: Oliguria Breast(s): Yes: WNL Extremities: Yes: Amputation (right bka) Edema: No Integumentary: Yes: Pressure Ulcer (left foot) Neurological: Yes: Alert, Oriented. No: Aphasia, Ataxia, Dysarthria, Unresponsive ...Motor Strength: WNL Psychiatric: Yes: WNL Discharge Summary Reason For Visit: CHEST PAIN, left earlobe abscess Current Active Problems Abscess of external ear (Acute) Abscess, earlobe (Acute) Chest pain at rest (Acute) ESRD (end stage renal disease) (Acute) Hyperkalemia, diminished renal excretion (Acute) Jaw pain (Acute) Condition: Stable - Instructions Referrals: Lew Billings MD [Primary Care Provider] - Disposition: LONGTERM FACILITY - Home Medications Comprehensive Discharge Medication List: Ambulatory Orders Acetaminophen [Tylenol] 325 mg PO PRN 02/20/16 Atorvastatin Calcium 20 mg PO HS 02/20/16 Bacitracin - [Bacitracin Topical Ointment -] 1 applic TP BID 02/20/16 Bismuth Subsalicylate [Kaopectate] 30 ml PO PRN 02/20/16 Calcium Carbonate [Tums] 750 mg PO PRN 02/20/16 Clonidine HCl [Catapres -] 0.1 mg PO PRN 02/20/16 Clopidogrel Bisulfate [Plavix -] 75 mg PO DAILY 02/20/16 Diphenhydramine HCl [Benadryl -] 25 mg PO HS 02/20/16 Diphenhydramine in 0.9 % NaCl [Diphenhydramine 25 mg/50 ml-Ns] 25 mg IV PRN 04/06 Docusate Sodium [Colace -] 100 mg PO TID 02/20/16 Escitalopram Oxalate [Lexapro -] 10 mg PO DAILY 02/20/16 Fluticasone Propionate [Allergy Relief] 15.8 ml NS DAILY 02/20/16 Furosemide [Lasix -] 80 mg PO DAILY 02/20/16 Gabapentin [Neurontin -] 300 mg PO HS 02/20/16 Hydralazine HCl 100 mg PO TID 02/20/16 Insulin Glargine,Hum.rec.anlog [Lantus (nf)] 0 units SQ HS 02/20/16 Mirtazapine [Remeron -] 15 mg PO HS 02/20/16 Polyethylene Glycol 3350 [Miralax (For Daily Use) -] 17 gm PO BID 02/20/16 Sevelamer Carbonate [Renvela] 800 mg PO TID 02/20/16 Silver Sulfadiazine [Thermazene] 20 gm TP BID 02/20/16 Tramadol HCl [Ultram] 50 mg PO Q6H 02/20/16 Vit B Cmplx 3/FA/Vit C/Biotin [Spring-Cornell Rx Tablet] 1 each PO DAILY 02/20/16 Warfarin Sodium [Coumadin] 2.5 mg PO HS 02/20/16
--- NOTE | 2016-02-21 13:24 | PN ---
Progress Note (short form) - Note Progress Note: ENT consult 76 yo F known to me from outpatient care admitted from [facility] to [facility] ER for acute chest pain has had medical evaluation and cleared for return to [facility] hx chronic renal failure, on hemodialysis , getting Vancomycin chronic itching external ears, has been rubbing ears gracy left side aggressively , thinks may ahve scratched it told she may have an abscess, has bloody drainage, was expressed yesterday some tenderness not significant deep pain. hearing is stable On exam NAD eyes WNL right ear normal external, canal exostosis, no infection left ear: pinna with swelling below antihelical fold, expressed blood but no pus from skin drainage area superior pinna, mild tenderness, mild erythema, no skin breakdown or pus. canal exostosis, no evidence of ear canal infection. Impression: left external ear superficial infection small focal hematoma expressed Recommend: observe OK to discharge home to [facility] continue antibiotics at hemodialysis as ordered to office for follow-up if left ear swelling does not resolve. Thank you for consultation, Juan Carlos Martell MD, FACS
[2016-02-22 06:06] LABS: HEP B SURFACE AB Non Reactive (.)
== END 2016-02-21 14:59 ==
LOC: JER 10:32 → UNDOADMOB 14:28 → JERBED 14:28
PROVIDERS: ADMIT Internal Medicine; ATTEND Internal Medicine
DX: R07.89 Other chest pain (principal); E78.5 Hyperlipidemia, unspecified; H60.02 Abscess of left external ear; K21.9 Gastro-esophageal reflux disease without esophagitis; E11.9 Type 2 diabetes mellitus without complications; I25.10 Atherosclerotic heart disease of native coronary artery without angina pectoris; F32.89 Other specified depressive episodes; I73.89 Other specified peripheral vascular diseases; M54.5 Low back pain; G62.89 Other specified polyneuropathies; Z99.2 Dependence on renal dialysis; E66.8 Other obesity; Z68.34 Body mass index [BMI] 34.0-34.9, adult; Z71.3 Dietary counseling and surveillance; E87.5 Hyperkalemia; R68.84 Jaw pain; I13.2 Hypertensive heart and chronic kidney disease with heart failure and with stage 5 chronic kidney disease, or end stage renal disease; N18.6 End stage renal disease; I50.32 Chronic diastolic (congestive) heart failure; Z95.5 Presence of coronary angioplasty implant and graft; Z95.1 Presence of aortocoronary bypass graft; Z89.511 Acquired absence of right leg below knee; L89.899 Pressure ulcer of other site, unspecified stage
CPT/HCPCS: 36415; 71010-TC; 80053; 82550; 84484; 85025; 85610; 86704; 86706; 86708; 86803; 87070; 87186; 87205; 87340; 93005; 93010; 99284-25; G0378

== ENCOUNTER → 2016-05-14 | Emergency (ER) | payer OTHER ==
[~2016-05-14] MED LIST: LEVOFLOXACIN 250 MG TABLET (FP) ONE
[2016-05-14 22:19] VITALS: BP 137/69; PULSE 69; TEMP 98.3; BMI 26.5
--- NOTE | 2016-05-15 03:26 | PDOC ---
History of Present Illness - History of Present Illness Initial Comments: 05/15/16 03:42 Patient is a 76 year old female with significant medical hx of HTN, CAD s/p cardiac stents (x2), HLD, NIDDM, ESRD on dialysis (TTS), recurrent UTI, GERD, severe bradycardia, hypotension, PVD, depression who is presenting to the ED with bleeding to her AV shunt. The patient reports the bleeding began immediately after her dialysis treatment earlier this afternoon. The patient denies any shortness of breath, chest pain, or lightheadedness. Surgical Hx: Right BKA (gangrene), AV fistula/graft (left), bypass (LLE), stents x 2 PCP: Dr. Billings Urologist: Dr. Tonya Ivey <Massiel Cheng - Last Filed: 05/15/16 03:42> <Juan Carlos Herbert - Last Filed: 05/15/16 04:29> - General Chief Complaint: AV shunt bleeding Stated Complaint: Dialysis Shunt Problem Past History <Massiel Cheng - Last Filed: 05/15/16 03:42> - Past Medical History Anemia: No Asthma: No Cancer: No Cardiac Disorders: Yes (2 stents) CVA: No COPD: No CHF: No Dementia: No Diabetes: Yes Dialysis: Yes GI Disorders: No Disorders: Yes (ESRD, dialysis tue,thur,sat) HTN: Yes Hypercholesterolemia: Yes Liver Disease: No Suicide Attempt (Hx): No Seizures: No Thyroid Disease: No - Surgical History Abdominal Surgery: No Appendectomy: No Cardiac Surgery: Yes (2 stents, angioplasty BLE) Cholecystectomy: No Lung Surgery: No Neurologic Surgery: Yes (lower back sx) Orthopedic Surgery: Yes (RBKA,R HIP SURGERY-METAL RODS AND PINS PLACED) - Immunization History Immunization Up to Date: Yes - Psycho/Social/Smoking Cessation Hx Anxiety: No Suicidal Ideation: No Smoking History: Never smoked Have you smoked in the past 12 months: No Cigars Per Day: 0 Information on smoking cessation initiated: No Hx Alcohol Use: No Drug/Substance Use Hx: No Substance Use Type: None Hx Substance Use Treatment: No <Juan Carlos Herbert - Last Filed: 05/15/16 04:29> - Past Medical History Allergies/Adverse Reactions: Allergies Allergy/AdvReac Type Severity Reaction Status Date / Time lovastatin [From Mevacor] Allergy Severe Rash Verified 05/14/16 22:13 Cephalosporins Allergy Verified 05/14/16 22:13 Iodinated Contrast Media - Allergy Verified 05/14/16 22:13 Oral and [Iodinated Contrast Media - IV Dye] metoclopramide HCl Allergy Verified 05/14/16 22:13 [From Reglan] morphine Allergy Verified 05/14/16 22:13 Home Medications: Ambulatory Orders Atorvastatin Calcium 20 mg PO HS 02/20/16 Bacitracin - [Bacitracin Topical Ointment -] 1 applic TP BID 02/20/16 Clopidogrel Bisulfate [Plavix -] 75 mg PO DAILY 02/20/16 Diphenhydramine HCl [Benadryl Capsule -] 25 mg PO HS 02/20/16 Docusate Sodium [Colace -] 100 mg PO TID 02/20/16 Escitalopram Oxalate [Lexapro -] 10 mg PO DAILY 02/20/16 Furosemide [Lasix -] 80 mg PO DAILY 02/20/16 Gabapentin [Neurontin -] 300 mg PO HS 02/20/16 Hydralazine HCl 100 mg PO TID 02/20/16 Insulin Glargine,Hum.rec.anlog [Lantus (10mL VIAL) -] 0 units SQ HS 02/20/16 Mirtazapine [Remeron -] 15 mg PO HS 02/20/16 Polyethylene Glycol 3350 [Miralax 119 gm Btl -] 17 gm PO BID 02/20/16 Sevelamer Carbonate [Renvela -] 800 mg PO TID 02/20/16 Tramadol HCl [Ultram] 50 mg PO Q6H 02/20/16 Becaplermin [Regranex] 15 gm TP DAILY #1 gel..gram. 02/24/16 Ascorbate Calcium [Vitamin C] 500 mg PO DAILY 05/15/16 FENTANYL 25mcg PATCH [DURAGESIC 25mcg PATCH -] 1 each TD Q72H 05/15/16 Fluticasone Prop 0.05% Nasal [Flonase -] 1 - 2 spray NS DAILY 05/15/16 Folic Acid/Vit Bcomp,C [Spring-Cornell Tablet] 0.8 mg PO DAILY 05/15/16 Insulin Aspart [Novolog] See Protocol SQ 05/15/16 Ranitidine [Zantac -] 150 mg PO DAILY 05/15/16 Warfarin Sodium [Coumadin] 3.5 mg PO Q2D 05/15/16 Warfarin Sodium [Coumadin] 4 mg PO Q2D 05/15/16 Zinc Sulfate 220 mg PO DAILY 05/15/16 Review of Systems - Review of Systems Comments:: 05/15/16 03:43 GENERAL/CONSTITUTIONAL: No fever or chills. No weakness. HEAD, EYES, EARS, NOSE AND THROAT: No change in vision. No ear pain or discharge. No sore throat. CARDIOVASCULAR: No chest pain or shortness of breath. RESPIRATORY: No cough, wheezing, or hemoptysis. GASTROINTESTINAL: No nausea, vomiting, diarrhea or constipation. GENITOURINARY: No dysuria, frequency, or change in urination. EXTREMITIES: Bleeding to left upper extremity AV graft. MUSCULOSKELETAL: No joint or muscle swelling or pain. No neck or back pain. SKIN: No rash NEUROLOGIC: No headache, vertigo, loss of consciousness, or change in strength/ sensation. <Massiel Cheng - Last Filed: 05/15/16 03:42> *Physical Exam - Vital Signs Last Vital Signs Temp Pulse Resp BP Pulse Ox 98.3 F 69 14 137/69 95 05/14/16 22:16 05/14/16 22:16 05/14/16 22:16 05/14/16 22:16 05/14/16 22:16 - Physical Exam Comments: 05/15/16 03:43 GENERAL: Awake, alert, and fully oriented, in no acute distress HEAD: No signs of trauma EYES: PERRLA, EOMI, sclera anicteric, conjunctiva clear ENT: Auricles normal inspection, hearing grossly normal, nares patent, oropharynx clear without exudates. Moist mucosa NECK: Normal ROM, supple, no lymphadenopathy, JVD, or masses LUNGS: Breath sounds equal, clear to auscultation bilaterally. No wheezes, and no crackles HEART: Regular rate and rhythm, normal S1 and S2, no murmurs, rubs or gallops ABDOMEN: Soft, nontender, normoactive bowel sounds. No guarding, no rebound. No masses EXTREMITIES: Pressure bandage in place to left upper extremity AV shunt, significant amount of dried red blood noted, no active bleeding, AV shunt patent with palpable thrill, no evidence of infection. It is itching. Normal range of motion, no edema. No clubbing or cyanosis. NEUROLOGICAL: Cranial nerves II through XII grossly intact. Normal speech, normal gait SKIN: Warm, Dry, normal turgor, no rashes or lesions noted. ENDOCRINE: No increased thirst. No abnormal weight change. HEMATOLOGIC/LYMPHATIC: No anemia, easy bleeding, or history of blood clots. ALLERGIC/IMMUNOLOGIC: No hives or skin allergy. <Massiel Cheng - Last Filed: 05/15/16 03:42> - Vital Signs Last Vital Signs Temp Pulse Resp BP Pulse Ox 98.3 F 69 14 137/69 95 05/14/16 22:16 05/14/16 22:16 05/14/16 22:16 05/14/16 22:16 05/14/16 22:16 <Juan Carlos Herbert - Last Filed: 05/15/16 04:29> Medical Decision Making - Medical Decision Making 05/15/16 03:25 This is a 76yo F with bleeding from the AV graft site; she has no current symptoms and after obersvation, the bleeding has not recurred. She is noted to have been on coumadin AND plavix however, NH informed she stopped the coumadin yesterday. She is encouraged to follow up with the PMD within the next 48 hours. 05/15/16 04:29 <Juan Carlos Herbert - Last Filed: 05/15/16 04:29> *DC/Admit/Observation/Transfer - Attestations Scribe Attestion: 05/15/16 03:45 Documentation prepared by Massiel Cheng, acting as medical transcriptionist for Juan Carlos Herbert MD. <Massiel Cheng - Last Filed: 05/15/16 03:42> - Discharge Dispostion Admit: No Decision to Admit order Date/Time: 05/15/16 03:23 - Attestations Physician Attestion: 05/15/16 03:24 I, Dr. Juan Carlos Herbert MD, attest that this document has been prepared under my direction and personally reviewed by me in its entirety. I further attest, that it accurately reflects all work, treatment, procedures and medical decision -making performed by me. <Juan Carlos Herbert - Last Filed: 05/15/16 04:29> Diagnosis at time of Disposition: AV graft malfunction Qualifiers: Encounter type: initial encounter Qualified Code(s): T82.590A - Other mechanical complication of surgically created arteriovenous fistula, initial encounter - Discharge Dispostion Disposition: [facility] Condition at time of disposition: Good - Referrals Referrals: Lew Billings MD [Primary Care Provider] - - Patient Instructions Additional Instructions: Please follow up with the PMD within the next 24 hours for reevaluation and if there is any change otherwise in symptoms, please return immediately to the ED.
--- NOTE | 2016-05-22 22:46 | EKG ---
Test Reason : Blood Pressure : / mmHG Vent. Rate : 069 BPM Atrial Rate : 069 BPM P-R Int : 168 ms QRS Dur : 096 ms QT Int : 398 ms P-R-T Axes : 055 -21 159 degrees QTc Int : 426 ms NORMAL SINUS RHYTHM LEFT VENTRICULAR HYPERTROPHY WITH REPOLARIZATION ABNORMALITY NONSPECIFIC T WAVE ABNORMALITY ABNORMAL ECG WHEN COMPARED WITH ECG OF 20-FEB-2016 10:51, NONSPECIFIC T WAVE ABNORMALITY PRESENT Confirmed by SHELDON JACOBS, LUDA ([id number]) on 05/22/2016 10:46:19 PM Referred By: Confirmed By:LUDA CHUNG MD
== END ==
LOC: JER 21:46
DX: T82.838A Hemorrhage due to vascular prosthetic devices, implants and grafts, initial encounter (principal); Y84.1 Kidney dialysis as the cause of abnormal reaction of the patient, or of later complication, without mention of misadventure at the time of the procedure; Y92.538 Other ambulatory health services establishments as the place of occurrence of the external cause; I25.10 Atherosclerotic heart disease of native coronary artery without angina pectoris; I13.11 Hypertensive heart and chronic kidney disease without heart failure, with stage 5 chronic kidney disease, or end stage renal disease; N18.6 End stage renal disease; Z99.2 Dependence on renal dialysis; Z95.5 Presence of coronary angioplasty implant and graft; E11.9 Type 2 diabetes mellitus without complications; Z79.84 Long term (current) use of oral hypoglycemic drugs; I73.89 Other specified peripheral vascular diseases; I95.89 Other hypotension; R00.1 Bradycardia, unspecified
CPT/HCPCS: 93005; 93010; 99281-25

== ENCOUNTER → 2016-05-21 | Emergency (ER) | payer OTHER ==
[~2016-05-21] MED LIST changes: -LEVOFLOXACIN 250 MG TABLET (FP) ONE; +LEVOFLOXACIN 250 MG TABLET (FP) PO ONE
[2016-05-21 15:51] VITALS: BMI 29.7
--- NOTE | 2016-05-21 16:33 | PDOC ---
History of Present Illness - General History Source: Patient Exam Limitations: No Limitations - History of Present Illness Initial Comments: 05/21/16 17:27 Patient is a 76 year old female, [facility] resident, with significant medical hx of HTN, CAD s/p cardiac stents (x2), HLD, NIDDM, ESRD on dialysis (MWF), recurrent UTI, GERD, severe bradycardia, hypotension, PVD, depression and decubitus ulcer who is presenting to the ED from HD for lethargy. Patient states that she wants to go back and is just feeling tired. Patient was seen in [facility] for AV shunt bleed, although according the the patient she was in the wound care. Patient appears confused upon presentation. Surgical Hx: Right BKA (gangrene), AV fistula/graft (left), bypass (LLE), stents x 2 PCP: Dr. Billings Preparation Center Coordinator: Dr. Tonya Ivey Vascular Surgery: Dr. Solomon <Brooke Salcido - Last Filed: 05/21/16 22:36> <Sammi Antoine - Last Filed: 05/22/16 02:40> - General Chief Complaint: Weakness Stated Complaint: WEAKNESS Time Seen by Provider: 05/21/16 16:19 Past History <Brooke Salcido - Last Filed: 05/21/16 22:36> - Past Medical History Anemia: No Asthma: No Cancer: No Cardiac Disorders: Yes (2 stents) CVA: No COPD: No CHF: No Dementia: No Diabetes: Yes Dialysis: Yes GI Disorders: No Disorders: Yes (ESRD, dialysis tue,thur,sat) HTN: Yes Hypercholesterolemia: Yes Liver Disease: No Suicide Attempt (Hx): No Seizures: No Thyroid Disease: No - Surgical History Abdominal Surgery: No Appendectomy: No Cardiac Surgery: Yes (2 stents, angioplasty BLE) Cholecystectomy: No Lung Surgery: No Neurologic Surgery: Yes (lower back sx) Orthopedic Surgery: Yes (RBKA,R HIP SURGERY-METAL RODS AND PINS PLACED) - Immunization History Immunization Up to Date: Yes - Psycho/Social/Smoking Cessation Hx Anxiety: No Suicidal Ideation: No Smoking History: Never smoked Have you smoked in the past 12 months: No Cigars Per Day: 0 Information on smoking cessation initiated: No Hx Alcohol Use: No Drug/Substance Use Hx: No Substance Use Type: None Hx Substance Use Treatment: No <Sammi Antoine - Last Filed: 05/22/16 02:40> - Past Medical History Allergies/Adverse Reactions: Allergies Allergy/AdvReac Type Severity Reaction Status Date / Time lovastatin [From Mevacor] Allergy Severe Rash Verified 05/21/16 15:52 Cephalosporins Allergy Verified 05/21/16 15:52 Iodinated Contrast Media - Allergy Verified 05/21/16 15:52 Oral and [Iodinated Contrast Media - IV Dye] metoclopramide HCl Allergy Verified 05/21/16 15:52 [From Reglan] morphine Allergy Verified 05/21/16 15:52 Home Medications: Ambulatory Orders Atorvastatin Calcium 20 mg PO HS 02/20/16 Clopidogrel Bisulfate [Plavix -] 75 mg PO DAILY 02/20/16 Diphenhydramine HCl [Benadryl Capsule -] 25 mg PO HS PRN 02/20/16 Docusate Sodium [Colace -] 100 mg PO TID 02/20/16 Escitalopram Oxalate [Lexapro -] 10 mg PO DAILY 02/20/16 Furosemide [Lasix -] 80 mg PO DAILY 02/20/16 Gabapentin [Neurontin -] 300 mg PO HS 02/20/16 Hydralazine HCl 100 mg PO TID 02/20/16 Insulin Glargine,Hum.rec.anlog [Lantus (10mL VIAL) -] 20 units SQ HS 02/20/16 Mirtazapine [Remeron -] 15 mg PO HS 02/20/16 Polyethylene Glycol 3350 [Miralax 119 gm Btl -] 17 gm PO BID 02/20/16 Sevelamer Carbonate [Renvela -] 800 mg PO TID 02/20/16 Tramadol HCl [Ultram] 50 mg PO Q6H 02/20/16 Ascorbate Calcium [Vitamin C] 500 mg PO DAILY 05/15/16 FENTANYL 25mcg PATCH [DURAGESIC 25mcg PATCH -] 1 each TD Q72H 05/15/16 Fluticasone Prop 0.05% Nasal [Flonase -] 1 - 2 spray NS DAILY 05/15/16 Review of Systems - Review of Systems Able to Perform ROS?: Yes Comments:: 05/21/16 17:28 CONSTITUTIONAL: Present: generalized weakness Absent: fever, chills, diaphoresis, malaise, loss of appetite HEENT: Absent: rhinorrhea, nasal congestion, throat pain, throat swelling, difficulty swallowing, mouth swelling, ear pain, eye pain, visual Changes CARDIOVASCULAR: Absent: chest pain, syncope, palpitations, irregular heart rate, lightheadedness , peripheral edema RESPIRATORY: Absent: cough, shortness of breath, dyspnea with exertion, orthopnea, wheezing, stridor, hemoptysis GASTROINTESTINAL: Absent: abdominal pain, abdominal distension, nausea, vomiting, diarrhea, constipation, melena, hematochezia GENITOURINARY: Absent: dysuria, frequency, urgency, hesitancy, hematuria, flank pain, genital pain MUSCULOSKELETAL: Absent: myalgia, arthralgia, joint swelling SKIN: Absent: rash, itching, pallor HEMATOLOGIC/IMMUNOLOGIC: Absent: easy bleeding, easy bruising, lymphadenopathy, frequent infections ENDOCRINE: Absent: unexplained weight gain, unexplained weight loss, heat intolerance, cold intolerance NEUROLOGIC: Absent: headache, focal weakness or paresthesias, dizziness, unsteady gait, seizure, mental status changes, bladder or bowel incontinence PSYCHIATRIC: Absent: anxiety, depression, suicidal or homicidal ideation, hallucinations. <Brooke Salcido - Last Filed: 05/21/16 22:36> *Physical Exam - Vital Signs Last Vital Signs Temp Pulse Resp BP Pulse Ox 63 18 107/48 100 05/21/16 15:14 05/21/16 15:14 05/21/16 15:14 05/21/16 15:14 - Physical Exam Comments: 05/21/16 17:35 GENERAL: Well developed, well nourished. Awake and alert. No acute distress. HEENT: Normocephalic, atraumatic. PERRLA, EOMI. No conjunctival pallor. Sclera are non- icteric. Moist mucous membranes. Oropharynx is clear. NECK: Supple. Full ROM. No JVD. Carotid pulses 2+ and symmetric, without bruits. No thyromegaly. No lymphadenopathy. CARDIOVASCULAR: Regular rate and rhythm. No murmurs, rubs, or gallops. Distal pulses are 2+ and symmetric. PULMONARY: No evidence of respiratory distress. Lungs clear to auscultation bilaterally. No wheezing, rales or rhonchi. ABDOMINAL: Soft. Non-tender. Non-distended. No rebound or guarding. No organomegaly. Normoactive bowel sounds. MUSCULOSKELETAL Normal range of motion at all joints. No bony deformities or tenderness. No CVA tenderness. EXTREMITIES: +R BKA No cyanosis. No clubbing. No edema. No calf tenderness. SKIN: +Decubitus ulcer 2 cm stage 2. +Scant excoriation face neck and arms complains of itching, +Skin on face and arms very dry. Warm and dry. Normal capillary refill. No jaundice. NEUROLOGICAL: Alert, awake, appropriate. Cranial nerves 2-12 intact. No deficits to light touch and temperature in face, upper extremities and lower extremities. No motor deficits in the in face, upper extremities and lower extremities. Normoreflexic in the upper and lower extremities. Normal speech. Toes are down-going bilaterally. PSYCHIATRIC: Cooperative. Good eye contact. Appropriate mood and affect. <Brooke Salcido - Last Filed: 05/21/16 22:36> - Vital Signs Last Vital Signs Temp Pulse Resp BP Pulse Ox 63 18 107/48 100 05/21/16 15:14 05/21/16 15:14 05/21/16 15:14 05/21/16 15:14 <Sammi Antoine - Last Filed: 05/22/16 02:40> ED Treatment Course - LABORATORY CBC & Chemistry Diagram: 05/21/16 17:21 05/21/16 17:21 - ADDITIONAL ORDERS Additional order review: Laboratory Results 05/21/16 16:33 POC Glucometer [id number] 05/21/16 16:33 POC Glucometer [id number] - RADIOLOGY Radiology Studies Ordered: 05/21/16 20:10 EXAM: CT/HEAD CT WITHOUT CONTRAST Cranial CT without contrast Clinical information lethargy, confusion No definite interval change is identified in comparison to a previous CT exam of 02/03/2015. Mild periventricular microvascular ischemic gliosis is noted. There is no discrete infarct within the limitations of CT. There is no obvious mass lesion. No extra axial fluid collection is seen. Involutional changes are noted with mild ventricular dilatation. Prominent atherosclerotic calcifications are noted along the cavernous carotid arteries and vertebral arteries. IMPRESSION: No CT evidence of acute intracranial pathology as discussed above. Reported By: Lewis Romo MD 05/21/16 <Brooke Salcido - Last Filed: 05/21/16 22:36> - LABORATORY CBC & Chemistry Diagram: 05/21/16 17:21 05/21/16 17:21 <Sammi Antoine - Last Filed: 05/22/16 02:40> Medical Decision Making - Medical Decision Making 05/21/16 19:20 A call was placed to Dr. Tonya Ivey at his service. 05/21/16 19:24 Case was discussed with Dr. Munoz covering for Dr. Ivey. 05/21/16 20:42 A call was placed to Dr. Munoz at his service. Awaiting a call back. 05/21/16 21:[address] Munoz. His recommendation was appreciated. 05/21/16 21:46 A call was placed to Dr. Billings and case was discussed. As per Dr. Billings, the patient should be sent back to the [facility]. <Brooke Salcido - Last Filed: 05/21/16 22:36> - Medical Decision Making 05/22/16 02:35 76 yo female BIBA from dialysis becasuse she appeared to be confuded after dialysis -no fever ct scan head no acute intracrania; pathology labs reveiewed- potassium is normal, createnine is baseline for this pe cxr no pneumonia neg troponin UA +UTI and given levaquin discussed case w nephrology Dr munoz and her pcp Dr Taty lassiter recommend d/c back to retirement <Sammi Antoine - Last Filed: 05/22/16 02:40> *DC/Admit/Observation/Transfer - Attestations Scribe Attestion: 05/21/16 17:37 Documentation prepared by JEANCARLOS Wu, acting as biomedical manager for Sammi Antoine MD. <Brooke Salcido - Last Filed: 05/21/16 22:36> <Smami Antoine - Last Filed: 05/22/16 02:40> Diagnosis at time of Disposition: UTI (urinary tract infection), bacterial - Discharge Dispostion Condition at time of disposition: Stable - Patient Instructions Printed Discharge Instructions: DI for Urinary Tract Infection (UTI) Additional Instructions: please follow up with DR Munoz, she needs to be on antibiotics for a urinary tract infection. Dr Munoz recommeneded levaquin 250mg po every 48 hours
[2016-05-21 17:50] LABS: BASOPHIL 0.3 % (0-2.0); EOSINOPHIL 8.3 % (0-4.5); MCH 32.6 pg (25.7-33.7); MCHC 32.6 g/dl (32.0-36.0); MEAN CELL VOLUME 99.9 fl (80-96); NEUTROPHILS 70.4 % (42.8-82.8); PLATELET COUNT 266 K/MM3 (134-434); RDW 14.8 % (11.6-15.6); WHITE BLOOD COUNT 7.6 K/mm3 (4.0-10.0)
[2016-05-21 17:53] LABS: INR 1.06 (0.82-1.09); PROTHROMBIN TIME (PATIENT) 11.7 SEC (9.98-11.88)
[2016-05-21 18:05] LABS: ALBUMIN 3.2 g/dl (3.4-5.0); ANION GAP 14 (8-16); CO2 23 mmol/L (21-32); CREATININE 4.1 mg/dL (0.55-1.02); GLUCOSE,RANDOM 137 mg/dL (74-106); SGPT/ALT 18 U/L (12-78); TOT PROT 6.6 g/dl (6.4-8.2)
[2016-05-21 18:12] LABS: ALK PHOS 133 U/L (45-117); BILIRUBIN,TOTAL 0.4 mg/dL (0.2-1.0); TROPONIN I < 0.02 ng/ml (0.00-0.05)
[2016-05-21 18:16] LABS: SGOT/AST 19 U/L (15-37)
[2016-05-21 20:23] LABS: URINE APPEARANCE TURBID; URINE GLUCOSE (UA) NEGATIVE (NEGATIVE)
[2016-05-21 20:24] LABS: URINE BILIRUBIN NEGATIVE (NEGATIVE); URINE BLOOD 2+ (NEGATIVE); URINE PROTEIN 3+ (NEGATIVE)
[2016-05-21 20:25] LABS: URINE COLOR DK YELLOW; URINE KETONE TRACE (NEGATIVE); URINE LEUK ESTERASE 2+ (NEGATIVE); URINE NITRITE NEGATIVE (NEGATIVE)
[2016-05-21 20:26] LABS: URINE WBC >100 /hpf (3-5)
[2016-05-21 23:06] VITALS: BP 138/63; PULSE 78; TEMP 99.2
--- NOTE | 2016-05-22 17:36 | EKG ---
Test Reason : Blood Pressure : / mmHG Vent. Rate : 063 BPM Atrial Rate : 063 BPM P-R Int : 172 ms QRS Dur : 092 ms QT Int : 420 ms P-R-T Axes : 068 -19 228 degrees QTc Int : 429 ms NORMAL SINUS RHYTHM MINIMAL VOLTAGE CRITERIA FOR LVH, MAY BE NORMAL VARIANT T WAVE ABNORMALITY, CONSIDER INFERIOR ISCHEMIA ABNORMAL ECG WHEN COMPARED WITH ECG OF 14-MAY-2016 22:09, NO SIGNIFICANT CHANGE WAS FOUND Confirmed by MIGUEL ORTEZ MD ([id number]) on 05/22/2016 5:36:00 PM Referred By: Confirmed By:MIGUEL ORTEZ MD
== END ==
LOC: JER 15:14
DX: N39.0 Urinary tract infection, site not specified (principal); I25.10 Atherosclerotic heart disease of native coronary artery without angina pectoris; I13.11 Hypertensive heart and chronic kidney disease without heart failure, with stage 5 chronic kidney disease, or end stage renal disease; N18.6 End stage renal disease; Z99.2 Dependence on renal dialysis; Z95.5 Presence of coronary angioplasty implant and graft; E11.9 Type 2 diabetes mellitus without complications; Z79.84 Long term (current) use of oral hypoglycemic drugs; K21.9 Gastro-esophageal reflux disease without esophagitis; I73.89 Other specified peripheral vascular diseases; F32.9 Major depressive disorder, single episode, unspecified; Z89.511 Acquired absence of right leg below knee
CPT/HCPCS: 36415; 70450-TC; 71010-TC; 80053; 81003; 81015; 82550; 84484; 85025; 85610; 86850; 86900; 86901; 93005; 93010; 99282-25

== ENCOUNTER 2016-06-25 15:36 | Emergency (ER) | payer OTHER ==
[2016-06-25 16:01] VITALS: BMI 28.3
--- NOTE | 2016-06-25 16:21 | PDOC ---
History of Present Illness <Margi Mejia - Last Filed: 06/25/16 19:50> - General History Source: Patient Exam Limitations: No Limitations - History of Present Illness Initial Comments: 06/25/16 17:12 76-year-old female presents the ED with complaints of continual right hip pain which she states developed after [facility] her right side. Patient states was using a walker weight-bearing on her left lower extremity and then fell. 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 Patient describes the pain as intermittent sharp and aching worsened with movement or palpation. Patient with history of end-stage renal disease on hemodialysis Timing/Duration: other (2 days ) Severity: moderate Associated Symptoms: reports: denies symptoms <Stella Guevara - Last Filed: 06/28/16 08:43> - General Stated Complaint: PAIN Time Seen by Provider: 06/25/16 15:40 Past History <Margi Mejia - Last Filed: 06/25/16 19:50> - Past Medical History Anemia: No Asthma: No Cancer: No Cardiac Disorders: Yes (2 stents) CVA: No COPD: No CHF: No Dementia: No Diabetes: Yes Dialysis: Yes GI Disorders: No Disorders: Yes (ESRD, dialysis tue,thur,sat) HTN: Yes Hypercholesterolemia: Yes Liver Disease: No Suicide Attempt (Hx): No Seizures: No Thyroid Disease: No - Surgical History Abdominal Surgery: No Appendectomy: No Cardiac Surgery: Yes (2 stents, angioplasty BLE) Cholecystectomy: No Lung Surgery: No Neurologic Surgery: Yes (lower back sx) Orthopedic Surgery: Yes (RBKA,R HIP SURGERY-METAL RODS AND PINS PLACED) - Immunization History Immunization Up to Date: Yes - Psycho/Social/Smoking Cessation Hx Anxiety: No Suicidal Ideation: No Smoking History: Never smoked Have you smoked in the past 12 months: No Cigars Per Day: 0 Hx Alcohol Use: No Drug/Substance Use Hx: No Substance Use Type: None Hx Substance Use Treatment: No Patient Lives Alone: No [facility] <Stella Guevara - Last Filed: 06/28/16 08:43> - Past Medical History Allergies/Adverse Reactions: Allergies Allergy/AdvReac Type Severity Reaction Status Date / Time lovastatin [From Mevacor] Allergy Severe Rash Verified 06/25/16 22:28 Cephalosporins Allergy Verified 06/25/16 22:28 Iodinated Contrast Media - Allergy Verified 06/25/16 22:28 Oral and [Iodinated Contrast Media - IV Dye] metoclopramide HCl Allergy Verified 06/25/16 22:28 [From Reglan] morphine Allergy Verified 06/25/16 22:28 Home Medications: Ambulatory Orders Atorvastatin Calcium 20 mg PO HS 02/20/16 Clopidogrel Bisulfate [Plavix -] 75 mg PO DAILY 02/20/16 Diphenhydramine HCl [Benadryl Capsule -] 25 mg PO HS PRN 02/20/16 Docusate Sodium [Colace -] 100 mg PO TID 02/20/16 Escitalopram Oxalate [Lexapro -] 10 mg PO DAILY 02/20/16 Furosemide [Lasix -] 80 mg PO DAILY 02/20/16 Gabapentin [Neurontin -] 300 mg PO HS 02/20/16 Hydralazine HCl 100 mg PO TID 02/20/16 Insulin Glargine,Hum.rec.anlog [Lantus (10mL VIAL) -] 20 units SQ HS 02/20/16 Mirtazapine [Remeron -] 15 mg PO HS 02/20/16 Polyethylene Glycol 3350 [Miralax 119 gm Btl -] 17 gm PO BID 02/20/16 Sevelamer Carbonate [Renvela -] 800 mg PO TID 02/20/16 Tramadol HCl [Ultram] 50 mg PO Q6H 02/20/16 Ascorbate Calcium [Vitamin C] 500 mg PO DAILY 05/15/16 FENTANYL 25mcg PATCH [DURAGESIC 25mcg PATCH -] 1 each TD Q72H 05/15/16 Fluticasone Prop 0.05% Nasal [Flonase -] 1 - 2 spray NS DAILY 05/15/16 Collagenase Clostridium Hist. [Santyl] 1 applic TP DAILY #90 oint...g. 06/08/16 Review of Systems - Review of Systems Able to Perform ROS?: Yes Constitutional: No: Symptoms Reported HEENTM: No: Symptoms Reported Respiratory: No: Symptoms reported ABD/GI: No: Symptoms Reported : No: Symptoms Reported Musculoskeletal: Yes: Symptoms Reported, Joint Pain (rt hip) Integumentary: No: Symptoms Reported Neurological: No: Symptoms reported <Stella Guevara - Last Filed: 06/28/16 08:43> *Physical Exam - Vital Signs Last Vital Signs Temp Pulse Resp BP Pulse Ox 98.3 F 79 18 149/93 98 06/25/16 15:48 06/25/16 15:48 06/25/16 15:48 06/25/16 15:48 06/25/16 15:48 <MoonkoleMargi - Last Filed: 06/25/16 19:50> - Physical Exam General Appearance: Yes: Nourished, Appropriately Dressed. No: Apparent Distress Gastrointestinal/Abdominal: positive: Soft. negative: Tenderness Extremity: positive: Tender (over rt hip ) Integumentary: positive: Normal Color, Warm, Moist Neurologic: positive: Motor Strength 5/5 (moves extremeties on stretcher) <PaolaStella - Last Filed: 06/28/16 08:43> Medical Decision Making - Medical Decision Making 06/25/16 19:[address] Kwame Alva who is covering for Dr. Humberto Pelaez (via answering service ) at 19:50 Awaiting call back <MoonkoleMargi - Last Filed: 06/25/16 19:50> - Medical Decision Making 06/25/16 17:10 Patient with continual right hip and groin pain since falling 2 days ago. Patient ordered for repeat x-ray and if in conclusive will order CT. <Stella Guevara - Last Filed: 06/28/16 08:43> *DC/Admit/Observation/Transfer <Margi Mejia - Last Filed: 06/25/16 19:50> <Stella Guevara - Last Filed: 06/28/16 08:43> Diagnosis at time of Disposition: Hip pain, acute, Fracture of right superior pubic ramus - Discharge Dispostion Disposition: [facility]ENTION FACILITY - Referrals Referrals: Lew Billings MD [Primary Care Provider] - - Patient Instructions Printed Discharge Instructions: Hip Fracture Additional Instructions: nonoperable hip fracture. orthopedic recommends physical therapy. limited weightbearing as tolerated. pain control as per pmd.
--- NOTE | 2016-06-25 19:51 | PDOC ---
*Physical Exam - Vital Signs Last Vital Signs Temp Pulse Resp BP Pulse Ox 98.3 F 79 18 149/93 98 06/25/16 15:48 06/25/16 15:48 06/25/16 15:48 06/25/16 15:48 06/25/16 15:48 <Margi Mejia - Last Filed: 06/25/16 21:06> - Vital Signs Last Vital Signs Temp Pulse Resp BP Pulse Ox 98.3 F 79 18 149/93 98 06/25/16 15:48 06/25/16 15:48 06/25/16 15:48 06/25/16 15:48 06/25/16 15:48 <Saima Antoine - Last Filed: 09/03/16 22:46> Medical Decision Making - Medical Decision Making 06/25/16 19:[address] Kwame Alva who is covering for Dr. Humberto Pelaez (via answering service ) at 19:50 Awaiting call back 06/25/16 20:19 Second call placed to Dr. Alva (via answering service) at 20:19 Awaiting call back 06/25/16 20:37 Third call placed to Dr. Alva (via answering service) at 20:37 Awaiting call back 06/25/16 20:41 Patient's case discussed with Dr. Alva at 20:41 06/25/16 20:[address] Lew Beavers (via answering service) at 20:58 06/25/16 21:00 Patient's case discussed with Dr. Beavers at 21:00 <Margi Mejia - Last Filed: 06/25/16 21:06> - Medical Decision Making 06/25/16 20:[address] Alva. recommends no orthopedic intervention. limited weight bearing and Physical therapy recommended. SCD and anticoagualtion 06/25/16 20:56 Dr. beavers paged . patient for admission for pain. Patient to be transferred back to [facility]. all orthopedic recommendation discussed with Dr. Beavers. PCP request patient to return to [facility] nursing facility for pain management and outpatient management. <Saima Antoine - Last Filed: 09/03/16 22:46> *DC/Admit/Observation/Transfer <Margi Mejia - Last Filed: 06/25/16 21:06> <Saima Antoine - Last Filed: 09/03/16 22:46> Diagnosis at time of Disposition: Hip pain, acute Qualifiers: Laterality: right Qualified Code(s): M25.551 - Pain in right hip Fracture of right superior pubic ramus Qualifiers: Encounter type: initial encounter Fracture type: closed Qualified Code(s): S32.511A - Fracture of superior rim of right pubis, initial encounter for closed fracture - Discharge Dispostion Disposition: [facility] HOME [facility]ACILITY - Referrals Referrals: Lew Beavers MD [Primary Care Provider] - - Patient Instructions Printed Discharge Instructions: Hip Fracture Additional Instructions: nonoperable hip fracture. orthopedic recommends physical therapy. limited weightbearing as tolerated. pain control as per pmd.
[2016-06-25] MEDS ORDERED: ACETAMINOPHEN 1000 MG/100 ML VIAL (NON FORMULARY) IVPB ONE (19:57)
[2016-06-25] MEDS ORDERED: ACETAMINOPHEN 500 MG TABLET (FP) PO ONE (21:20)
[2016-06-25] MEDS ORDERED: ACETAMINOPHEN 325 MG TABLET (FP) ONE (22:16)
[2016-06-25 23:46] VITALS: BP 140/90; PULSE 76; TEMP 98.5
--- NOTE | 2016-06-26 11:05 | EKG ---
Test Reason : Blood Pressure : / mmHG Vent. Rate : 082 BPM Atrial Rate : 082 BPM P-R Int : 170 ms QRS Dur : 100 ms QT Int : 408 ms P-R-T Axes : 080 -32 202 degrees QTc Int : 476 ms NORMAL SINUS RHYTHM LEFT AXIS DEVIATION MINIMAL VOLTAGE CRITERIA FOR LVH, MAY BE NORMAL VARIANT PROLONGED QT ABNORMAL ECG WHEN COMPARED WITH ECG OF 21-MAY-2016 15:45, ST NOW DEPRESSED IN LATERAL LEADS CLINICAL CORRELATION IS RECOMMENDED Confirmed by DEBBIE JACOBS, ANA ([id number]) on 06/26/2016 11:04:44 AM Referred By: Confirmed By:ANA LEWIS MD
== END 2016-06-25 23:30 ==
LOC: JER 15:36
DX: S32.511A Fracture of superior rim of right pubis, initial encounter for closed fracture (principal); W18.39XA Other fall on same level, initial encounter; Y93.01 Activity, walking, marching and hiking; Y92.128 Other place in nursing home as the place of occurrence of the external cause; Y99.8 Other external cause status; I25.10 Atherosclerotic heart disease of native coronary artery without angina pectoris; I13.11 Hypertensive heart and chronic kidney disease without heart failure, with stage 5 chronic kidney disease, or end stage renal disease; N18.6 End stage renal disease; Z99.2 Dependence on renal dialysis; Z95.5 Presence of coronary angioplasty implant and graft; E11.9 Type 2 diabetes mellitus without complications; Z79.4 Long term (current) use of insulin; E78.00 Pure hypercholesterolemia, unspecified; Z89.511 Acquired absence of right leg below knee
CPT/HCPCS: 73523-TC; 73700-TC-RT; 93005; 93010; 99282-25